=== PATIENT | female | born 1950 | race Caucasian/White ===

== ENCOUNTER → 2017-11-17 | Outpatient (CLI) | payer MEDICARE ==
[~2017-11-17] MED LIST: DIATRIZOATE MEGL/DIATRIZOA SOD 30 ML BTL PO ONE
--- NOTE | 2017-11-17 16:19 | Diagnostic Imaging Report ---
EXAMINATION: CT of the abdomen without contrast. TECHNIQUE: Helical CT images of the abdomen were performed from the lung bases to the iliac crests after the oral administration ofGastrografin No intravenous contrast was administeredas ordered.Dose modulation, iterative reconstruction, and/or weight based adjustment of the mA/kV was utilized to reduce the radiation dose to as low as reasonably achievable. COMPARISON: None. DISCUSSION: ABSENCE OF INTRAVENOUS CONTRAST DECREASES SENSITIVITY FOR DETECTION OF FOCAL LESIONS AND VASCULAR PATHOLOGY. LOWER THORAX:Unremarkable. HEPATOBILIARY: No focal hepatic lesions. No biliary ductal dilatation. The gallbladder is normal. SPLEEN: No splenomegaly. PANCREAS: No focal masses or ductal dilatation. ADRENALS: No adrenal nodules. KIDNEYS/URETERS: No hydronephrosis, stones, or solid mass lesions. PERITONEUM/RETROPERITONEUM: No free air or fluid. LYMPH NODES: No intra-abdominal, retroperitoneal, pelvic or inguinal lymphadenopathy. VESSELS: The celiac trunk,superior and inferior mesenteric and bilateral renal arteries are patent The portal, superior mesenteric and splenic veins are patent. 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 No abscess. IMPRESSION: Stranding along the midline laparotomy site. No abscess. Signed by: Dr. Rai Lara M.D. on 11/17/2017 4:16 PM
== END ==
LOC: CT 14:47
PROVIDERS: ATTEND Internal Medicine
DX: A08.8 Other specified intestinal infections (principal); S36.438 Laceration of other part of small intestine
CPT/HCPCS: 74150